=== PATIENT | female | born 1965 | race Caucasian/White ===

== ENCOUNTER 2018-01-05 12:58 | Emergency (ER) | payer MEDICARE, MEDICAID ==
[~2018-01-05] VITALS: Ht 157.5 cm; Wt 47.7 kg
[2018-01-05 13:14] VITALS: TEMP 99
[2018-01-05 13:54] LABS: BASO # 0.1 (0.0-0.2); BASO % 0.8 % (0.0-2.0); EOS # 0.1 (0.0-0.7); EOS % 0.8 % (0-4.0); GRAN # 6.1 (1.4-6.5); GRAN % 65.7 % (42.2-75.2); HEMATOCRIT 39.8 % (37.0-47.0); HEMOGLOBIN 13.3 g/dl (12.5-16.0); LYMPH # 2.3 (1.2-3.4); LYMPH % 24.4 % (20.0-51.0); MEAN CELL VOLUME 88 fl (80.0-100.0); MEAN CORPUSCULAR HEMOGLOBIN 30 pg (27.0-31.0); MEAN CORPUSCULAR HGB CONC 33 g/dl (33.0-37.0); MEAN PLATELET VOLUME 10.4 fl (7.4-10.4); MONO # 0.7 (0.1-0.6); MONO % 7.9 % (1.7-9.3); PLATELET COUNT 251 K/mm3 (130-400); RED BLOOD COUNT 4.51 M/mm3 (4.10-5.30); REDCELL DISTRIBUTION WIDTH-CV 13.2 % (11.5-14.5)
[2018-01-05 14:03] LABS: ALANINE AMINOTRANSFERASE 23 U/L (9-52); ALBUMIN 3.8 gm/dL (3.5-5.0); ALKALINE PHOSPHATASE 81 U/L (50-136); ANION GAP 11 mmol/L (7-16); AST,SGOT 21 U/L (15-37); BILIRUBIN,TOTAL 0.4 mg/dL (0.0-1.0); BLOOD UREA NITROGEN 10 mg/dL (7-17); CALCIUM 9.5 mg/dL (8.4-10.2); CARBON DIOXIDE 28 mmol/L (22-30); CHLORIDE 98 mmol/L (98-107); CREATININE, serum 0.64 mg/dL (0.52-1.25); GLUCOSE 137 mg/dL (74-106); LIPASE 147 U/L (23-300); SODIUM 137 mmol/L (137-145); TOTAL PROTEIN 6.9 gm/dL (6.4-8.2)
[2018-01-05 14:05] LABS: TRICYCLIC ANTIDEPRESS URINE NEGATIVE
[2018-01-05 14:09] LABS: ACETAMINOPHEN < 10 ug/mL (10-30); ALCOHOL(ethanol),MEDICAL < 10 mg/dL; SALICYLATE < 1.0 mg/dL
[2018-01-05 14:10] LABS: POTASSIUM 2.9 mmol/L (3.4-5.0)
[2018-01-05 14:15] LABS: MUCOUS Present /lpf; PH 6 (5-8); SQUAMOUS EPITHELIAL 0-2 /hpf; URINE APPEARANCE Cloudy; URINE BACTERIA Rare /hpf; URINE BILIRUBIN Negative (NEGATIVE); URINE BLOOD Negative (NEGATIVE); URINE COLOR Amber; URINE GLUCOSE Negative (NEGATIVE); URINE KETONE Trace (NEGATIVE); URINE LEUKOCYTE ESTERASE Negative (NEGATIVE); URINE NITRATE Negative (NEGATIVE); URINE PROTEIN(semi-quant) 1+ (NEGATIVE)
[2018-01-05 14:22] LABS: COLLECTION METHOD CLEAN CATCH
[2018-01-05 22:29] VITALS: BP 141/93; PULSE 99
== END 2018-01-05 22:37 ==
LOC: COL.ER 12:58
PROVIDERS: Emergency Medicine
DX: R19.7 Diarrhea, unspecified (principal); N39.0 Urinary tract infection, site not specified; R45.851 Suicidal ideations; F41.9 Anxiety disorder, unspecified; F32.9 Major depressive disorder, single episode, unspecified; E03.9 Hypothyroidism, unspecified; F12.90 Cannabis use, unspecified, uncomplicated; Z90.710 Acquired absence of both cervix and uterus
CPT/HCPCS: J2060; J3480; J7030

== ENCOUNTER → 2018-02-14 | Outpatient (CLI) | payer MEDICARE, MEDICAID ==
[2018-02-14 16:10] LABS: BASO # 0.1 (0.0-0.2); EOS # 0.1 (0.0-0.7); EOS % 0.7 % (0-4.0); GRAN # 5.4 (1.4-6.5); GRAN % 66.4 % (42.2-75.2); HEMOGLOBIN 13.9 g/dl (12.5-16.0); LYMPH # 1.8 (1.2-3.4); LYMPH % 21.4 % (20.0-51.0); MEAN CELL VOLUME 85 fl (80.0-100.0); MEAN CORPUSCULAR HEMOGLOBIN 29 pg (27.0-31.0); MEAN CORPUSCULAR HGB CONC 34 g/dl (33.0-37.0); MEAN PLATELET VOLUME 10.8 fl (7.4-10.4); MONO # 0.8 (0.1-0.6); MONO % 9.9 % (1.7-9.3); PLATELET COUNT 259 K/mm3 (130-400); RED BLOOD COUNT 4.81 M/mm3 (4.10-5.30); REDCELL DISTRIBUTION WIDTH-CV 13.2 % (11.5-14.5)
[2018-02-14 16:19] LABS: ALBUMIN 3.9 gm/dL (3.5-5.0); BILIRUBIN,TOTAL 0.5 mg/dL (0.0-1.0); CALCIUM 9.3 mg/dL (8.4-10.2); CREATININE, serum 0.54 mg/dL (0.52-1.25); POTASSIUM 3.3 mmol/L (3.4-5.0); TOTAL PROTEIN 7.1 gm/dL (6.4-8.2)
[2018-02-14 16:49] LABS: THYROID STIMULATING HORMONE 0.354 uIU/mL (0.465-4.680)
== END ==
LOC: COL.LAB 11:20
PROVIDERS: Family Medicine
DX: R19.7 Diarrhea, unspecified (principal); R11.10 Vomiting, unspecified; R10.9 Unspecified abdominal pain; R63.4 Abnormal weight loss

== ENCOUNTER 2018-02-18 10:51 | Emergency (ER) | payer MEDICARE, MEDICAID ==
[~2018-02-18] VITALS: Ht 162.6 cm; Wt 59.1 kg
[2018-02-18 10:55] VITALS: BP 122/85; TEMP 97
[2018-02-18] MEDS ORDERED: ZOLOFT 50MG50 MG PO (10:59)
[2018-02-18] MEDS ORDERED: HCTZ12.5TAB PO (11:00)
[2018-02-18] MEDS ORDERED: PRINIVIL10 MG PO (11:00)
[2018-02-18] MEDS ORDERED: PREDNISONE20 MG PO (11:37)
[2018-02-18] MEDS ORDERED: PEPCID 20MG TAB20 MG PO (11:37)
[2018-02-18 12:13] VITALS: PULSE 72
== END 2018-02-18 12:14 | disposition home or self-care (01) ==
LOC: COL.ER 10:51
DX: T78.1XXA Other adverse food reactions, not elsewhere classified, initial encounter (principal); I10 Essential (primary) hypertension
CPT/HCPCS: J7512

== ENCOUNTER 2018-03-27 07:55 | Emergency (ER) | payer MEDICARE, MEDICAID ==
[~2018-03-27] VITALS: Ht 157.5 cm; Wt 40.7 kg
[~2018-03-27 07:55] MED LIST: HCTZ12.5TAB PO; PEPCID 20MG TAB20 MG PO; PREDNISONE20 MG PO; PRINIVIL10 MG PO; ZOLOFT 50MG50 MG PO
[2018-03-27 08:07] VITALS: BP 160/93; PULSE 112; TEMP 98.9
[2018-03-27] MEDS ORDERED: PEPCID 20MG TAB20 MG PO (08:30)
[2018-03-27] MEDS ORDERED: NORCO 325 MG-51 TAB PO (09:01)
== END 2018-03-27 10:16 | disposition home or self-care (01) ==
LOC: COL.ER 07:55
DX: S42.401A Unspecified fracture of lower end of right humerus, initial encounter for closed fracture (principal); F32.9 Major depressive disorder, single episode, unspecified; W10.9XXA Fall (on) (from) unspecified stairs and steps, initial encounter
CPT/HCPCS: Q4050

== ENCOUNTER → 2018-05-13 | Outpatient (CLI) | payer MEDICARE, MEDICAID ==
[~2018-05-13] MED LIST changes: +NORCO 325 MG-51 TAB PO
== END ==
LOC: COL.RAD 11:25
DX: R10.2 Pelvic and perineal pain (principal); R63.4 Abnormal weight loss; R05 Cough

== ENCOUNTER → 2018-05-25 | Outpatient (CLI) | payer MEDICARE, MEDICAID | LOC: COL.RAD 05-23 10:30 | DX: N32.89 Other specified disorders of bladder (principal); K76.9 Liver disease, unspecified | CPT/HCPCS: Q9967 ==

== ENCOUNTER 2018-12-01 13:01 | Emergency (ER) | payer MEDICARE, MEDICAID ==
[~2018-12-01] VITALS: Ht 157.5 cm; Wt 37.7 kg
[2018-12-01 13:11] VITALS: BP 156/99; PULSE 77; TEMP 98.7
[2018-12-01 14:20] LABS: COLLECTION METHOD CLEAN CATCH
[2018-12-01 14:24] LABS: BASO # 0.1 (0.0-0.2); BASO % 1.2 % (0.0-2.0); EOS # 0.1 (0.0-0.7); EOS % 1.5 % (0-4.0); GRAN # 4.2 (1.4-6.5); GRAN % 57.2 % (42.2-75.2); HEMATOCRIT 40.1 % (37.0-47.0); HEMOGLOBIN 13.3 g/dl (12.5-16.0); LYMPH # 2.3 (1.2-3.4); LYMPH % 31.8 % (20.0-51.0); MEAN CELL VOLUME 89 fl (80.0-100.0); MEAN CORPUSCULAR HEMOGLOBIN 30 pg (27.0-31.0); MEAN CORPUSCULAR HGB CONC 33 g/dl (33.0-37.0); MEAN PLATELET VOLUME 10.2 fl (7.4-10.4); MONO # 0.6 (0.1-0.6); PLATELET COUNT 213 K/mm3 (130-400); RED BLOOD COUNT 4.49 M/mm3 (4.10-5.30); REDCELL DISTRIBUTION WIDTH-CV 13.5 % (11.5-14.5)
[2018-12-01 14:29] LABS: MUCOUS Present /lpf; PH 5 (5-8); SQUAMOUS EPITHELIAL 0-2 /hpf; URINE APPEARANCE Hazy; URINE BACTERIA Many /hpf; URINE BILIRUBIN Negative (NEGATIVE); URINE BLOOD 1+ (NEGATIVE); URINE COLOR Yellow; URINE GLUCOSE Negative (NEGATIVE); URINE KETONE Negative (NEGATIVE); URINE LEUKOCYTE ESTERASE Negative (NEGATIVE); URINE NITRATE Positive (NEGATIVE); URINE PROTEIN(semi-quant) Negative (NEGATIVE); URINE UROBILINOGEN Negative (NEGATIVE)
[2018-12-01 14:37] LABS: ALANINE AMINOTRANSFERASE 21 U/L (9-52); ALKALINE PHOSPHATASE 78 U/L (50-136); ANION GAP 10 mmol/L (7-16); AST,SGOT 34 U/L (15-37); BILIRUBIN,TOTAL 0.4 mg/dL (0.0-1.0); BLOOD UREA NITROGEN 20 mg/dL (7-17); CALCIUM 9.5 mg/dL (8.4-10.2); CARBON DIOXIDE 33 mmol/L (22-30); CHLORIDE 100 mmol/L (98-107); CREATININE, serum 0.64 (0.52-1.25); GLUCOSE 129 mg/dL (74-106); POTASSIUM 3.7 mmol/L (3.4-5.0); SODIUM 143 mmol/L (137-145); TOTAL PROTEIN 7.2 gm/dL (6.4-8.2)
[2018-12-01 14:40] LABS: C-REACTIVE PROTEIN < 0.5 mg/dL (0.0-0.9)
[2018-12-01] MEDS ORDERED: CEFTIN500 MG PO (15:10)
== END 2018-12-01 16:05 | disposition home or self-care (01) ==
LOC: COL.ER 13:01
PROVIDERS: Nurse Practitioner
DX: N39.0 Urinary tract infection, site not specified (principal); Z90.710 Acquired absence of both cervix and uterus; Z98.51 Tubal ligation status

== ENCOUNTER 2018-12-11 15:40 | Emergency (ER) | payer MEDICARE, MEDICAID ==
[~2018-12-11] VITALS: Ht 157.5 cm; Wt 37.3 kg
[~2018-12-11 15:40] MED LIST changes: +CEFTIN500 MG PO
[2018-12-11 15:53] VITALS: TEMP 97.8
[2018-12-11] MEDS ORDERED: CIPRO 250MG TA250 MG PO (16:50)
[2018-12-11] MEDS ORDERED: VOLTAREN 75 DR75 MG PO (19:25)
[2018-12-11] MEDS ORDERED: NORVASC 5MG5 MG/TAB PO (19:25)
[2018-12-11 19:40] VITALS: BP 129/86; PULSE 86
== END 2018-12-11 19:41 | disposition home or self-care (01) ==
LOC: COL.ER 15:40
DX: R10.30 Lower abdominal pain, unspecified (principal)
CPT/HCPCS: J1885; J7512

== ENCOUNTER → 2018-12-23 | Outpatient (CLI) | payer MEDICARE, MEDICAID ==
[~2018-12-23] MED LIST changes: +CIPRO 250MG TA250 MG PO; +NORVASC 5MG5 MG/TAB PO; +VOLTAREN 75 DR75 MG PO
== END ==
LOC: COL.RAD 14:16
DX: M25.552 Pain in left hip (principal)

== ENCOUNTER → 2019-01-03 | Outpatient (CLI) | payer MEDICARE, MEDICAID ==
[2019-01-03 12:13] LABS: AMYLASE 87 U/L (30-110); LIPASE 135 U/L (23-300)
== END ==
LOC: COL.LAB 11:29
PROVIDERS: Family Medicine
DX: R19.7 Diarrhea, unspecified (principal); R11.10 Vomiting, unspecified; R11.0 Nausea

== ENCOUNTER 2019-06-01 09:38 | Emergency (ER) | payer MEDICARE, MEDICAID ==
[~2019-06-01] VITALS: Ht 157.5 cm; Wt 84.1 kg
[2019-06-01 09:44] VITALS: TEMP 98
[2019-06-01] MEDS ORDERED: CLEOCIN HCL300 MG PO (10:05)
[2019-06-01] MEDS ORDERED: NORCO 325 MG-51 TAB PO (10:05)
[2019-06-01 10:15] VITALS: BP 128/98; PULSE 67
== END 2019-06-01 10:15 | disposition home or self-care (01) ==
LOC: COL.ER 09:38
DX: R22.0 Localized swelling, mass and lump, head (principal); I10 Essential (primary) hypertension; Z87.891 Personal history of nicotine dependence

== ENCOUNTER 2019-09-05 13:28 | Observation (INO) | payer MEDICARE, MEDICAID ==
[~2019-09-05] VITALS: Ht 157.5 cm; Wt 43.0 kg
[~2019-09-05 13:28] MED LIST changes: +CLEOCIN HCL300 MG PO
[2019-09-05 14:05] LABS: BASO # 0.1 (0.0-0.2); BASO % 0.7 % (0.0-2.0); EOS # 0.1 (0.0-0.7); EOS % 1.3 % (0-4.0); GRAN # 5.2 (1.4-6.5); GRAN % 62.1 % (42.2-75.2); HEMATOCRIT 39.9 % (37.0-47.0); HEMOGLOBIN 13.5 g/dl (12.5-16.0); LYMPH # 2.2 (1.2-3.4); MEAN CELL VOLUME 88 fl (80.0-100.0); MEAN CORPUSCULAR HEMOGLOBIN 30 pg (27.0-31.0); MEAN CORPUSCULAR HGB CONC 34 g/dl (33.0-37.0); MEAN PLATELET VOLUME 10.1 fl (7.4-10.4); MONO # 0.8 (0.1-0.6); MONO % 9.5 % (1.7-9.3); PLATELET COUNT 227 K/mm3 (130-400); RED BLOOD COUNT 4.53 M/mm3 (4.10-5.30)
[2019-09-05 14:15] LABS: PROTHROMBIN TIME 11.3 SECONDS (9.7-12.8)
[2019-09-05] MEDS ORDERED: CATAPRES 0.1MG0.1 MG PO (14:19)
[2019-09-05 14:20] LABS: ALANINE AMINOTRANSFERASE 14 U/L (4-34); ALBUMIN 3.9 gm/dL (3.5-5.0); ALKALINE PHOSPHATASE 111 U/L (50-136); ANION GAP 8 mmol/L (7-16); AST,SGOT 21 U/L (15-37); BILIRUBIN,TOTAL 0.3 mg/dL (0.0-1.0); BLOOD UREA NITROGEN 13 mg/dL (7-17); CALCIUM 9.1 mg/dL (8.4-10.2); CARBON DIOXIDE 30 mmol/L (22-30); CHLORIDE 103 mmol/L (98-107); CREATINE KINASE 60 U/L (30-135); CREATININE, serum 0.55 (0.52-1.25); GLUCOSE 106 mg/dL (74-106); LIPASE 224 U/L (23-300); POTASSIUM 3.2 mmol/L (3.4-5.0); SODIUM 140 mmol/L (137-145); TOTAL PROTEIN 6.9 gm/dL (6.4-8.2)
[2019-09-05] MEDS ORDERED: MINIPRESS2 MG PO (14:23)
[2019-09-05 14:31] LABS: TROPONIN-I < 0.012 ng/mL (0.000-0.035)
[2019-09-05 16:44] VITALS: BP 125/80; PULSE 88; TEMP 98.8
--- NOTE | 2019-09-05 17:15 | NUR ---
Patient up to room from ER. Alert and oriented x 3. Oriented to room. Assessment and 5 page complete. IV fluids infusing to RAC. Denies pain at this time. Hospitalist in to see patient. Information obtained with help of balloon design printer. No further needs at this time.
--- NOTE | 2019-09-05 20:00 | NUR ---
Received report from JUDITH Sanders. Alert and oriented. Use of whiteboard to communicate with pt. Denies any pain or discomfort. Meds administered as ordered. INT to RAC intact, flushed, dressing CDI. Tele monitor in place, leads checked. Pt aware of POC and NPO status midnight. Needs met at this time. Call light within reach.
[2019-09-05 21:12] VITALS: BP 93/52; PULSE 91; TEMP 98.8
[2019-09-06] VITALS (11 sets, daily range): BP systolic 112–156; BP diastolic 66–98; PULSE 58–127; TEMP 97.7–98.5
[2019-09-06 06:47] LABS: BASO # 0.1 (0.0-0.2); BASO % 0.9 % (0.0-2.0); EOS # 0.1 (0.0-0.7); EOS % 1.9 % (0-4.0); GRAN # 3.8 (1.4-6.5); GRAN % 56.2 % (42.2-75.2); HEMOGLOBIN 12.1 g/dl (12.5-16.0); LYMPH # 2.1 (1.2-3.4); LYMPH % 30.6 % (20.0-51.0); MEAN CELL VOLUME 90 fl (80.0-100.0); MEAN CORPUSCULAR HEMOGLOBIN 30 pg (27.0-31.0); MEAN CORPUSCULAR HGB CONC 33 g/dl (33.0-37.0); MEAN PLATELET VOLUME 10.5 fl (7.4-10.4); MONO # 0.7 (0.1-0.6); MONO % 10.1 % (1.7-9.3); PLATELET COUNT 183 K/mm3 (130-400); RED BLOOD COUNT 4.08 M/mm3 (4.10-5.30)
[2019-09-06 06:52] LABS: HEMATOCRIT 36.9 % (37.0-47.0)
[2019-09-06 06:59] LABS: ALANINE AMINOTRANSFERASE 13 U/L (4-34); ALBUMIN 3.2 gm/dL (3.5-5.0); ALKALINE PHOSPHATASE 84 U/L (50-136); ANION GAP 5 mmol/L (7-16); AST,SGOT 22 U/L (15-37); BILIRUBIN,TOTAL 0.6 mg/dL (0.0-1.0); BLOOD UREA NITROGEN 14 mg/dL (7-17); CALCIUM 8.9 mg/dL (8.4-10.2); CARBON DIOXIDE 28 mmol/L (22-30); CHLORIDE 104 mmol/L (98-107); CHOLESTEROL 154 mg/dL (120-200); CHOLESTEROL RISK RATIO 3.6; CREATININE, serum 0.51 (0.52-1.25); GLUCOSE 88 mg/dL (74-106); HDL CHOLESTEROL 42 mg/dL; LDL CHOLESTEROL 93 mg/dL; POTASSIUM 4.1 mmol/L (3.4-5.0); SODIUM 137 mmol/L (137-145); TOTAL PROTEIN 5.9 gm/dL (6.4-8.2); TRIGLYCERIDE 93 mg/dL
[2019-09-06 07:05] LABS: TROPONIN-I < 0.012 ng/mL (0.000-0.035)
--- NOTE | 2019-09-06 07:17 | NUR ---
Pt made no complaints during this shift. Needs attended too. Remained NPO since midnight. Call light within reach.
--- NOTE | 2019-09-06 07:18 | NUR ---
Report given to JUDITH Waller.
--- NOTE | 2019-09-06 08:53 | NUR ---
Pt napping upon entry, easily awakened, no C/O pain at this time, shift assessments comnplete, left Pt call light in reach, bed in lowest position.
--- NOTE | 2019-09-06 11:43 | NUR ---
Pt has a small area of redness developing above her left AC area, Pt relayed that occasionally she will have a rash develop for unknown reasone and that she will normally take benedryl for relief at home, Pt also has some nausea vomiting this morning. Requested benedryl for relief of the rash. Benedryl was given and for the rash and zofran for the nausea / vomiting.
[2019-09-06] MEDS ORDERED: MINIPRESS2 MG PO (12:31)
--- NOTE | 2019-09-06 16:49 | NUR ---
Rodent Control Worker met with patient and her gifted teacher Chandana (ph#[phone]) to discuss discharge planning. Patient lives alone in [place] and is looking to establish primary care with [facility]. Patient is agreeable to any physician there accepting new patients. Patient also receives services from [facility]. Patient does not use DME and is independent with ADLS. Patient picks up her medications from [facility] with no difficulties. Patient does not have Advance Directives. Patient states her emergency contact is Chandana. Patient's three children, Merced, Ricardo, and Kj live in [place]. Patient declined providing contact information for them. Patient plans to return home upon discharge. SW to continue to follow for any discharge needs.
--- NOTE | 2019-09-06 18:00 | NUR ---
Pt discharged to home, discussed discharge packet with Pt, answered all questions. Escorted Pt to entrance, left with construction administrative assistant via private aout.
== END 2019-09-06 18:00 | disposition home or self-care (01) ==
LOC: COL.ER 13:28 → MEDICAL 16:02
PROVIDERS: Emergency Medicine; ADMIT Student in an Organized Health Care Education/Training Program
DX: R07.9 Chest pain, unspecified (principal); I10 Essential (primary) hypertension; E87.6 Hypokalemia; H91.90 Unspecified hearing loss, unspecified ear; F32.9 Major depressive disorder, single episode, unspecified; F41.9 Anxiety disorder, unspecified; Z79.899 Other long term (current) drug therapy; Z87.891 Personal history of nicotine dependence; Z80.1 Family history of malignant neoplasm of trachea, bronchus and lung
CPT/HCPCS: A9500; G0378; J1650; J2405; J7030

== ENCOUNTER → 2019-11-16 | Outpatient (CLI) | payer MEDICARE, MEDICAID ==
[~2019-11-16] MED LIST changes: +CATAPRES 0.1MG0.1 MG PO; +MINIPRESS2 MG PO
== END ==
LOC: COL.RAD 08:10
DX: I31.3 Pericardial effusion (noninflammatory) (principal); K57.30 Diverticulosis of large intestine without perforation or abscess without bleeding
CPT/HCPCS: Q9967

== ENCOUNTER → 2019-12-14 | Outpatient (CLI) | payer MEDICARE, MEDICAID | LOC: COL.RAD | DX: R19.7 Diarrhea, unspecified (principal); R11.0 Nausea; R10.9 Unspecified abdominal pain ==

== ENCOUNTER → 2019-12-27 | Outpatient (CLI) | payer MEDICARE, MEDICAID | LOC: COL.RAD 12-20 07:00 | DX: R10.13 Epigastric pain (principal); R11.10 Vomiting, unspecified | CPT/HCPCS: A9537; J2805 ==

== ENCOUNTER → 2020-01-03 | Outpatient (CLI) | payer MEDICARE, MEDICAID | LOC: COL.RAD 07:56 | DX: R10.13 Epigastric pain (principal); R11.10 Vomiting, unspecified | CPT/HCPCS: A9541 ==

== ENCOUNTER → 2020-04-18 | Outpatient (CLI) | payer MEDICARE, MEDICAID | LOC: MC.RAD 08:30 | DX: N63.21 Unspecified lump in the left breast, upper outer quadrant (principal); Z98.82 Breast implant status ==

== ENCOUNTER 2021-02-04 02:02 | Emergency (ER) | payer MEDICARE, MEDICAID ==
[~2021-02-04] VITALS: Ht 162.6 cm; Wt 54.5 kg
[2021-02-04 02:53] VITALS: TEMP 97.6
[2021-02-04] MEDS ORDERED: NORCO 325 MG-51 TAB PO (03:06)
[2021-02-04] MEDS ORDERED: AMOXICILLIN 8751 TAB PO (03:06)
[2021-02-04 04:11] VITALS: BP 167/105; PULSE 72
== END 2021-02-04 04:11 | disposition home or self-care (01) ==
LOC: COL.ER 02:02
DX: S61.452A Open bite of left hand, initial encounter (principal); S61.451A Open bite of right hand, initial encounter; I10 Essential (primary) hypertension; F32.A Depression, unspecified; Z20.3 Contact with and (suspected) exposure to rabies; W55.01XA Bitten by cat, initial encounter

== ENCOUNTER 2021-05-07 06:49 | Emergency (ER) | payer MEDICARE, MEDICAID ==
[~2021-05-07] VITALS: Ht 157.5 cm; Wt 40.0 kg
[~2021-05-07 06:49] MED LIST changes: +AMOXICILLIN 8751 TAB PO
[2021-05-07 07:16] VITALS: TEMP 98.4
[2021-05-07] MEDS ORDERED: WELLBUTRIN XL150 MG PO (07:21)
[2021-05-07] MEDS ORDERED: COZAAR100 MG PO (07:21)
[2021-05-07] MEDS ORDERED: MAXALT10 MG (07:22)
[2021-05-07] MEDS ORDERED: ZOFRAN ODT4 MG PO (07:40)
[2021-05-07 08:27] VITALS: BP 164/112; PULSE 81
== END 2021-05-07 08:35 | disposition home or self-care (01) ==
LOC: COL.ER 06:49
DX: B34.9 Viral infection, unspecified (principal); I10 Essential (primary) hypertension; F32.A Depression, unspecified; Z87.891 Personal history of nicotine dependence; Z79.899 Other long term (current) drug therapy

== ENCOUNTER 2022-01-12 13:35 | Emergency (ER) | payer MEDICARE, MEDICAID ==
[~2022-01-12 13:35] MED LIST changes: +COZAAR100 MG PO; +MAXALT10 MG; +WELLBUTRIN XL150 MG PO; +ZOFRAN ODT4 MG PO
[2022-01-12 13:58] VITALS: TEMP 98.5
[2022-01-12] MEDS ORDERED: COZAAR 25MG25 MG/TAB PO (14:23)
[2022-01-12 14:45] VITALS: BP 166/120; PULSE 89
== END 2022-01-12 14:45 | disposition home or self-care (01) ==
LOC: COL.ER 13:35
DX: I10 Essential (primary) hypertension (principal)

== ENCOUNTER → 2023-02-09 | Outpatient (CLI) | payer MEDICARE, MEDICAID ==
[~2023-02-09] MED LIST changes: +COZAAR 25MG25 MG/TAB PO; +OMNICEF 300MG300 MG PO
[2023-02-09 08:10] VITALS: BP 170/90; PULSE 72; TEMP 97.7
[2023-02-09 10:10] VITALS: BP 164/100; PULSE 74
== END ==
LOC: MC.RAD 07:51
DX: E04.1 Nontoxic single thyroid nodule (principal)
CPT/HCPCS: 32106